=== PATIENT | male | born 1980 | race Caucasian/White ===

== ENCOUNTER 2020-12-14 17:02 | Observation (INO) ==
[2020-12-14] MEDS ORDERED: MAGNESIUM SULFATE 2 GM/50 ML BAG IV PRN (17:47)
[2020-12-14] MEDS ORDERED: POLYETHYLENE GLYCOL 3350 17 GM PACKET PO PRN (17:47)
[2020-12-14] MEDS ORDERED: ACETAMINOPHEN 325 MG TABLET PO PRN (17:47)
[2020-12-14] MEDS ORDERED: POTASSIUM CHLORIDE 20 MEQ PACKET PO PRN (17:47)
[2020-12-14] MEDS ORDERED: MELATONIN 3 MG TABLET PO PRN (17:47)
[2020-12-14] MEDS ORDERED: ONDANSETRON 4 MG ODT TABLET SL PRN (17:47)
[2020-12-14] MEDS ORDERED: ONDANSETRON 4 MG/2 ML VIAL IV PRN (17:47)
[2020-12-14] MEDS ORDERED: ACETAMINOPHEN 650 MG/65 ML BAG IV PRN (17:47)
[2020-12-14] MEDS ORDERED: BISACODYL 10 MG SUPP.RECT PR PRN (17:47)
--- NOTE | 2020-12-14 17:47 | Internal Med History&Physical ---
HPI History of Present Illness Patient information: Note initiated : 12/14/20 at 5:41 pm Service Date, if different from initiated Date: [] Patient: Mauro Lacy a 40 y/o M admitted on 12/14/20 for Pyelonephritis. Chief Complaint: Left flank pain, fever History of present illness: Mr. Lacy is a 40 year old M previously healthy with no significant medical history except for recurrent nephrolithiasis status post stenting x2 ( [place] and subsequently in [facility] in May) when he had a 11 mm stone. Stent was removed within 2 weeks by patient. Patient was in his baseline state of health until started experiencing weakness, fatigue fever and left-sided flank pain. Patient plays basketball and noted dark-colored urine during the previous game. Endorses dysuria but denies anton hematuria. Patient was evaluated and sent to the ER where initial work-up was consistent with pyelonephritis with stranding on CT abdomen. White count 15,800. UA extensive pyuria, COVID-19 negative. Patient was started antibiotics after cultures were drawn. Urology was consulted and requested transfer to [facility] for further evaluation management. Subsequently hospitalist service was consulted. Patient on arrival is hemodynamically stable. Denies fever chills. Endorses to history as above. Case discussed with urology. We will continue antibiotics and keep n.p.o. after midnight for urology intervention in a.m. Patient denies prior medical history including diabetes or hypertension. 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 Drinks occasionally on weekends. Smokes marijuana. No history of IV drug abuse Review of systems 10 point review system was performed and is negative except for ones discussed above Social history Patient lives with mother. 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 Smokes marijuana Family history No history of renal stones Physical examination Head normocephalic Oral cavity moist No ear nose discharge Eye movement symmetrical Neck supple no lymphadenopathy S1-S2 regular Nonlabored breathing Nondistended nontender abdomen Lower extremity no cyanosis clubbing or joint swelling Skin no suspicious lesion Psych no hallucination, alert cooperative Neuro normal higher function PFSH PFSH Social History smoking status: Never smoker MEDS/ALLERGIES Home Medications and Allergies Home Medications Medication Instructions Recorded Confirmed Type No Known Home Meds 12/14/20 12/14/20 History Allergies Allergy/AdvReac Type Severity Reaction Status Date / Time No Known Drug Allergies Allergy Verified 02/08/21 17:51 A/P Narrative A/P Narrative: * Acute pyelonephritis-continue antibiotic coverage. Urine cultures pending. * Sepsis with leukocytosis 15.8. Continue crystalloids/antibiotic coverage. Hemodynamically stable at this time * Possible retained stent. Urology consulted for intervention. Keep n.p.o. after midnight. * Flank pain secondary to pyelonephritis. Continue as needed opioids * Prophylaxis frequent ambulation Plan * Urology consult * Antibiotic coverage * pain management * Keep n.p.o. after midnight Time Spent With Patient Time: Total time spent is greater than 50% in coordination of care (as documented) at patient's floor/unit and/or counseling patient:
[2020-12-14] MEDS: LEVOFLOXACIN 750 MG/150 ML BAG IV SCH (18:35)
[2020-12-14] MEDS ORDERED: SENNOSIDES/DOCUSATE SODIUM 1 TAB TABLET PO SCH (21:00)
[2020-12-14] MEDS: DOCUSATE SODIUM 100 MG CAPSULE PO SCH (21:49)
[2020-12-14] MEDS: HEPARIN 5,000 UNIT/ML VIAL SQ SCH (21:49)
[2020-12-14] MEDS: 0.9 % SODIUM CHLORIDE 10 ML SYRINGE IV SCH (21:49)
[2020-12-15] MEDS: 0.9 % SODIUM CHLORIDE 1,000 ML IV SCH ×3 (00:15→13:46)
[2020-12-15] MEDS: 0.9 % SODIUM CHLORIDE 10 ML SYRINGE IV SCH (06:04)
[2020-12-15 07:02] LABS: Basophils # (Auto) 0.03 K/mcL (0.00-0.20); Basophils % (Auto) 0.5 % (0.0-2.0); Eosinophils # (Auto) 0.21 K/mcL (0.00-0.70); Eosinophils % (Auto) 3.2 % (0.0-7.0); Hematocrit 43.1 % (41.0-55.0); Hemoglobin 14.4 g/dL (13.5-16.5); Lymphocytes # (Auto) 1.67 K/mcL (1.50-4.80); Lymphocytes % (Auto) 25.1 % (15.0-49.0); Mean Cell Volume 92.7 fL (80.0-100.0); Mean Corpuscular HGB Conc 33.4 g/dL (31.0-36.0); Mean Platelet Volume 10.1 fL (7.4-10.4); Monocytes # (Auto) 0.69 K/mcL (0.10-0.90); Monocytes % (Auto) 10.4 % (1.0-12.0); Neutrophils % (Auto) 60.8 % (38.0-78.0); Platelet Count 260 K/mcL (140-440); RBC 4.65 M/mcL (4.50-5.90); Red Cell Distribution Width 12.6 % (11.5-14.5); WBC 6.7 K/mcL (4.5-11.0)
[2020-12-15 07:41] LABS: ALT/SGPT 17 U/L (<40); AST/SGOT 17 U/L (<40); Albumin 3.8 gm/dL (3.2-5.2); Albumin/Globulin Ratio 2.1 (1.0-2.3); Alkaline Phosphatase 65 U/L (39-117); Bilirubin,Direct < 0.2 mg/dL (<0.3); Bilirubin,Total 0.7 mg/dL (0.1-1.0); Blood Urea Nitrogen 11 mg/dL (6-20); Calcium 8.6 mg/dL (8.6-10.4); Carbon Dioxide 23 mmol/L (22-30); Chloride 107 mmol/L (96-108); Globulin 1.8 gm/dL (2.2-3.7); Glomerular Filtration Rate 112; Glucose 100 mg/dL (70-105); Lactate Dehydrogenase 146 U/L (135-225); Phosphorous 3.1 mg/dL (2.5-4.5); Triglycerides 238 mg/dL (<150); Uric Acid 6.4 mg/dL (2.5-8.0)
[2020-12-15] MEDS ORDERED: cefTRIAXone 2 GM in DEXTROSE 5% IN WATER 50 ML IV SCH (09:00)
[2020-12-15] MEDS: DOCUSATE SODIUM 100 MG CAPSULE PO SCH (09:32)
[2020-12-15] MEDS: HEPARIN 5,000 UNIT/ML VIAL SQ SCH (09:32)
[2020-12-15] MEDS: LEVOFLOXACIN 750 MG/150 ML BAG IV SCH (10:00)
--- NOTE | 2020-12-15 12:35 | Discharge Summary ---
Discharge Provider Provider Patient information: Note initiated : 12/15/20 at 12:32 pm Service Date, if different from initiated Date: [] Patient: Mauro Lacy a 40 y/o M admitted on 12/14/20 for Pyelonephritis. Discharge diagnosis * Acute pyelonephritis-continue antibiotic coverage additional 9 days of oral Levaquin. Urine cultures negative so far * Sepsis with leukocytosis 15.8. Clinically resolved with antibiotics. White count normalized. Hemodynamic stable. Feels at baseline. Pain-free * Ureteric stone/retained stent will undergo urology follow-up/cystoscopy as outpatient cardiology recommendations. * Flank pain fully resolved. Brief hospital course History of present illness: Mr. Lacy is a 40 year old M previously healthy with no significant medical history except for recurrent nephrolithiasis status post stenting x2 ( [place] and subsequently in [facility] in May) when he had a 11 mm stone. Stent was removed within 2 weeks by patient. Patient was in his baseline state of health until started experiencing weakness, fatigue fever and left-sided flank pain. Patient plays basketball and noted dark-colored urine during the previous game. Endorses dysuria but denies anton hematuria. Patient was evaluated and sent to the ER where initial work-up was consistent with pyelonephritis with stranding on CT abdomen. White count 15,800. UA extensive pyuria, COVID-19 negative. Patient was started antibiotics after cultures were drawn. Urology was consulted and requested transfer to [facility] for further evaluation management. Subsequently hospitalist service was consulted. Patient on arrival is hemodynamically stable. Denies fever chills. Endorses to history as above. Case discussed with urology. We will continue antibiotics and keep n.p.o. after midnight for urology intervention in a.m. Patient denies prior medical history including diabetes or hypertension. 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 Drinks occasionally on weekends. Smokes marijuana. No history of IV drug abuse 12/15-patient discharging on oral antibiotics as per urology recommendations. Overnight fever defervesced. Abdominal pain resolved. Per urology condition patient will need outpatient cystoscopy/possible laser lithotripsy following completion of antibiotic course for 7 days. Feels at baseline. Discharging home on Levaquin for 9 days Date of admission: 12/14/20 17:02 Discharge date: 12/15/20 Primary care physician: Unknown Unknown Consults: 12/15/20 08:00 Consult to Physician [CONS] Routine Comment: Consulting Provider: Chase Mills Reason For Exam: Physician to Consult Discharge Meds Discharge Medications Home Medications levofloxacin 750 mg PO DAILY #9 tab 12/15/20 [Rx Last Taken Unknown] COURSE Hospital Course Hospital course: . Discharge diagnosis: Acute pyelonephritis Time Spent with Patient Time attestation: Total time spent providing and/or coordinating discharge services: EXAM Constitutional Vitals: Temp Pulse Resp BP Pulse Ox 98.3 F 65 18 116/76 96 12/15/20 12:00 12/15/20 12:00 12/15/20 12:00 12/15/20 12:00 12/15/20 12:00 Discharge Data Data Completed and Pending Labs on day of discharge: Labs from last 24 hours 12/15/20 12/15/20 05:47 05:46 WBC 6.7 RBC 4.65 Hgb 14.4 Hct 43.1 MCV 92.7 MCH 31.0 MCHC 33.4 RDW 12.6 Plt Count 260 MPV 10.1 Neut % (Auto) 60.8 Lymph % (Auto) 25.1 [place] % (Auto) 10.4 Eos % (Auto) 3.2 Baso % (Auto) 0.5 Lymph # (Auto) 1.67 [place] # (Auto) 0.69 Eos # (Auto) 0.21 Baso # (Auto) 0.03 Absolute Neutrophils 4.06 Sodium 140 Potassium 4.1 Chloride 107 Carbon Dioxide 23 Anion Gap 10.0 BUN 11 Creatinine 0.8 GFR Calculation 112 Glucose 100 Uric Acid 6.4 Calcium 8.6 Phosphorus 3.1 Magnesium 2.4 Total Bilirubin 0.7 Direct Bilirubin < 0.2 GGT 17 AST 17 ALT 17 Alkaline Phosphatase 65 Lactate Dehydrogenase 146 Total Protein 5.6 L Albumin 3.8 Globulin 1.8 L Albumin/Globulin Ratio 2.1 Triglycerides 238 H Discharge Plan Patient/Caregiver Discharge Instructions Activity: increase activity as tolerated Diet: Regular Diet Activity Restrictions/Additional Instructions: Continue antibiotics additional 9 days Follow-up with urology as advised Prescriptions: New levofloxacin [levofloxacin] 750 MG tablet 750 mg PO DAILY Qty: 9 RF: 0 Follow Up Plan Patient Disposition: Home, Self-Care Rehab Potential: Good I certify that the patient requires SNF services: No Overall status at discharge: patient is back to baseline Discharge Orders: Discharge Order (Routine); Ordered 12/15/20 Ordered By: Ari WINSTON VTE Deep Vein Thrombosis/Pulmonary Embolism Present on Admission: No
--- NOTE | 2020-12-15 14:51 | Internal Medicine Consult Note ---
HPI Data of Consult Primary Care Provider: Unknown Unknown Consult Narrative Patient Information: Note initiated : 12/15/20 at 2:35 pm Service Date, if different from initiated Date: [] Patient: Mauro Lacy 40 y/o M admitted on 12/14/20 for Pyelonephritis. This 40-year-old male presented to the [facility] emergency room with a 1 day history of left flank pain. He has a known history of 3 stones treated surgically over the past several years the most recent of which was in May 2020. He was asymptomatic from then until 1 day prior to admission. He began having rapid onset of severe colicky nonradiating left flank pain. He states that the most recent surgery in May was done with a laser and a ureteroscope and a stent was left in place. He states that he pulled the stent out himself 2 weeks after the surgery and describes it as a soft plastic tubing with a coil in each and. In the emergency room a CT was done because of the pain and the urine that looked infected and an unclear history as to whether the entire stone had been removed in May. The CT showed a stent that was completely intact and in position with a coil in the bladder and a coil in the kidney along with about an 8 to 10 mm stone in the lower pole of the left kidney. It is unclear to the patient or to me what it was that he pulled out and in fact admits he may be thinking of a different procedure altogether. Regardless the stent was present and in place along with the stone and it showed some dilation of the upper tract consistent with obstruction or edema. In addition he also had some stranding of the soft tissue around the left kidney. The patient had a white count of 15,000 in the emergency room and was given 1 g of Rocephin prior to being transferred to [facility]. The plan is to reevaluate him, treat with antibiotics at least overnight and determine whether he needs surgical intervention now or at a later date. He states that in the 12 hours since his admission and receiving the antibiotics that he has been completely pain-free and is quite comfortable at this point. We discussed in detail the fact that the stent was indeed still in place and that the stone was indeed still in place as well. We do want to do any kind of intervention until he has been on the antibiotics for at least a week. He is comfortable with that especially since he is pain-free at this time. Chief complaint: Left flank pain Reason for consult: Same as chief complaint cc:: CC: Ari Jo Review of Systems All systems: reviewed and no additional remarkable complaints except as stated Gastrointestinal Gastrointestinal: Present abdominal pain and nausea Genitourinary Genitourinary: flank pain Additional comments: Pain associated with some nausea but no vomiting PFSH PFSH All Active Problems (Updated 12/15/20 @ 14:48 by Chase Mills MD) Stone in renal pelvis (Acute) Pyelonephritis of left kidney (Acute) Social History smoking status: Never smoker MEDS/ALLERGIES Home Medications and Allergies Home Medications Medication Instructions Recorded Confirmed Type levofloxacin 750 mg PO DAILY #9 tab 12/15/20 Rx Allergies Allergy/AdvReac Type Severity Reaction Status Date / Time No Known Drug Allergies Allergy Verified 12/14/20 17:51 EXAM Constitutional Vitals: Temp Pulse Resp BP Pulse Ox 98.3 F 65 18 116/76 96 12/15/20 12:00 12/15/20 12:00 12/15/20 12:00 12/15/20 12:00 12/15/20 12:00 General appearance: cooperative Exam: The patient is a well-nourished white male in no acute distress. He has a benign abdomen with no mass, tenderness, or hernia. There is no CVA tenderness and he has normal external genitalia DATA Data Completed and Pending Labs: Labs from last 24 hours 12/15/20 12/15/20 05:47 05:46 WBC 6.7 RBC 4.65 Hgb 14.4 Hct 43.1 MCV 92.7 MCH 31.0 MCHC 33.4 RDW 12.6 Plt Count 260 MPV 10.1 Neut % (Auto) 60.8 Lymph % (Auto) 25.1 [place] % (Auto) 10.4 Eos % (Auto) 3.2 Baso % (Auto) 0.5 Lymph # (Auto) 1.67 [place] # (Auto) 0.69 Eos # (Auto) 0.21 Baso # (Auto) 0.03 Absolute Neutrophils 4.06 Sodium 140 Potassium 4.1 Chloride 107 Carbon Dioxide 23 Anion Gap 10.0 BUN 11 Creatinine 0.8 GFR Calculation 112 Glucose 100 Uric Acid 6.4 Calcium 8.6 Phosphorus 3.1 Magnesium 2.4 Total Bilirubin 0.7 Direct Bilirubin < 0.2 GGT 17 AST 17 ALT 17 Alkaline Phosphatase 65 Lactate Dehydrogenase 146 Total Protein 5.6 L Albumin 3.8 Globulin 1.8 L Albumin/Globulin Ratio 2.1 Triglycerides 238 H Impressions Impressions: Review of the CT shows a double-J ureteral stent in place with a 10 mm left lower pole stone A/P Assessment and plan (1) Pyelonephritis of left kidney: Status: Acute (2) Stone in renal pelvis: Status: Acute Narrative A/P Narrative: This patient has an infected left kidney which is involving both the stent and the stone. We will continue with antibiotic therapy with oral Levaquin 500 mg daily as an outpatient and will follow up in roughly 1 week to schedule for definitive intervention with either laser lithotripsy and flexible ureteroscopy or with shockwave lithotripsy. Time Spent With Patient Time: Total time spent is greater than 50% in coordination of care (as documented) at patient's floor/unit and/or counseling patient: Total time spent with greater than 50% in coordination of care (as documented) at patient's floor/unit and/or counseling patient:: Greater than 35 minutes
== END 2020-12-15 14:35 | disposition home or self-care (01) ==
LOC: MEDSUR 17:02 → INTOOBSV 17:02
PROVIDERS: ADMIT Internal Medicine; ATTEND Internal Medicine